=== PATIENT | male | born 1980 | race Caucasian/White ===

== ENCOUNTER 2017-12-23 23:38 | Emergency (ER) | payer OTHER, BC ==
[2017-12-24] MEDS ORDERED: diazePAM 5 MG TABLET PO STA (01:06)
[2017-12-24] MEDS ORDERED: HYDROcod/ACETAM 5/325 MG TABLET PO STA (01:06)
--- NOTE | 2017-12-24 01:26 | ED Physician Documentation ---
PD HPI BACK PAIN - Stated complaint Stated Complaint: BACK INJURY - Chief complaint Chief Complaint: Trauma Ch/Bk - History obtained from History obtained from: Patient - History of Present Illness Timing - onset: How many days ago (3) Timing - duration: Days (3) Timing - details: Abrupt onset Pain level now: 8 Location: Lower, Right Quality: Pain, Spasm Associated symptoms: No: Fever, Weakness, Numbness, Incontinent of urine, Unable to urinate, Incontinent of stool Improves with: Rest Worsened by: Movement Similar symptoms before: Has not had sx before Recently seen: Not recently seen - Additional information Additional information: sudden onset lower back pain, midline and right paralumbar. onset 12/20 when he was lifting a heavy load (approximately 75 pounds aluminum). Has not had this before. He had tolerable symptoms with rest, but increasingly severe symptoms that are triggered with movement. No relief with ibuprofen, acetaminophen Review of Systems : denies: Unable to Void, Incontinent Musculoskeletal: reports: Back pain. denies: Neck pain Neurologic: denies: Focal weakness, Numbness PD PAST MEDICAL HISTORY - Past Medical History Past Medical History: No Cardiovascular: None Respiratory: None Neuro: None Endocrine/Autoimmune: None GI: None : None HEENT: None Psych: None Musculoskeletal: None Derm: None - Past Surgical History Past Surgical History: Yes - Present Medications Home Medications: Ambulatory Orders Medication Instructions Recorded Confirmed Hydrocodone/Acetaminophen 1 - 2 each PO Q6HR PRN #20 tablet 12/24/17 [Hydrocodone-Acetamin 5-325 mg] diazePAM [Valium] 5 - 10 mg PO TID PRN #15 tablet 12/24/17 - Allergies Allergies/Adverse Reactions: Allergies Allergy/AdvReac Type Severity Reaction Status Date / Time No Known Drug Allergies Allergy Verified 04/19/13 19:02 - Social History Does the pt smoke?: No Smoking Status: Never smoker Does the pt drink ETOH?: Yes Does the pt have substance abuse?: No - Immunizations Immunizations are current?: Yes - POLST Patient has POLST: No PD ED PE NORMAL - Vitals Vital signs reviewed: Yes - General General: Alert and oriented X 3, No acute distress (NAD at rest, apparent painful distress with movement of lower back), Well developed/nourished - Back Back: No CVA TTP, No spinal TTP - Derm Derm: Normal color, Warm and dry, No rash - Extremities Extremities: Normal ROM s pain - Neuro Neuro: No motor deficit, No sensory deficit, Other (2+/4 bilateral patellar DTR) Results - Vitals Vitals: Vital Signs - 24 hr 12/23/17 12/24/17 23:47 01:35 Temperature 36.2 C L Heart Rate 87 78 Respiratory 16 14 Rate Blood Pressure 143/87 H 131/96 H O2 Saturation 98 96 Oxygen O2 Source Room air PD MEDICAL DECISION MAKING - ED course Complexity details: re-evaluated patient (patient reported significant pain relief after PO valium and vicodin), considered differential, d/w patient Departure - Departure Disposition: Home, Self Care Clinical Impression: Low back pain Condition: Good Instructions: ED Sprain Strain Lumbar Follow-Up: [facility] [Provider Group] [facility] [Provider Group] Prescriptions: Hydrocodone/Acetaminophen [Hydrocodone-Acetamin 5-325 mg] 1 - 2 each PO Q6HR PRN #20 tablet PRN Reason: Pain diazePAM [Valium] 5 - 10 mg PO TID PRN #15 tablet PRN Reason: Spasms Forms: Activity restrictions Discharge Date/Time: 12/24/17 02:11
[2017-12-24 01:36] VITALS: BP 131/96
== END 2017-12-24 02:11 | disposition home or self-care (01) ==
LOC: ED 23:38
DX: M54.5 Low back pain (principal); X50.0XXA Overexertion from strenuous movement or load, initial encounter
CPT/HCPCS: 99283; A9270

== ENCOUNTER 2018-10-30 17:24 | Emergency (ER) | payer OTHER ==
--- NOTE | 2018-10-30 17:53 | ED Physician Documentation ---
History of Present Illness - Stated complaint Stated Complaint: MALE - Chief complaint Chief Complaint: General - History obtained from History obtained from: Patient - History of Present Illness Timing: Today (This is a 38-year-old gentleman who had a vasectomy about 7 years ago. Since then he has had episodic right testicular pain that bothers him until he ejaculates and take some Motrin and then it goes away. He does notice that when that happens the ejaculate is more granular but he denies any blood in the ejaculate. Been more frequent this year and has had a particularly severe episode of this since 3:00 this morning and he feels like the testicle is riding high. He is relatively comfortable if he is not moving but walking and sitting in certain positions really hurt. He declines pain medication here.) Review of Systems Constitutional: denies: Fever, Chills Respiratory: denies: Dyspnea, Cough GI: denies: Abdominal Pain, Nausea, Vomiting PD PAST MEDICAL HISTORY - Past Medical History Past Medical History: No Cardiovascular: None Respiratory: None Endocrine/Autoimmune: None GI: None : None HEENT: None Psych: None Musculoskeletal: None Derm: None - Past Surgical History Past Surgical History: Yes - Present Medications Home Medications: Ambulatory Orders Medication Instructions Recorded Confirmed Ciprofloxacin HCl [Cipro] 500 mg PO BID #20 tablet 10/30/18 - Allergies Allergies/Adverse Reactions: Allergies Allergy/AdvReac Type Severity Reaction Status Date / Time No Known Drug Allergies Allergy Verified 10/30/18 17:29 - Social History Does the pt smoke?: No Smoking Status: Never smoker Does the pt drink ETOH?: Yes Does the pt have substance abuse?: No - Immunizations Immunizations are current?: Yes - POLST Patient has POLST: No PD ED PE NORMAL - Vitals Vital signs reviewed: Yes - General General: Alert and oriented X 3, No acute distress - Abdomen Abdomen: Normal bowel sounds, Soft, Non tender - Male Male : Other (No hernia, the right testicle is tender especially superiorly with normal lie, symmetric cremaster reflexes.) - Neuro Neuro: Alert and oriented X 3, Normal speech Results - Vitals Vitals: Vital Signs - 24 hr 10/30/18 10/30/18 17:27 19:32 Temperature 36.8 C 36.5 C Heart Rate 95 74 Respiratory 20 14 Rate Blood Pressure 145/103 H 132/102 H O2 Saturation 100 100 Oxygen O2 Source Room air - Rads (name of study) testicular sono Radiology: Prelim report reviewed (neg) Departure - Departure Disposition: Home, Self Care Clinical Impression: Acute epididymitis Condition: Good Record reviewed to determine appropriate education?: Yes Instructions: Epididymitis Dc Prescriptions: Ciprofloxacin HCl [Cipro] 500 mg PO BID #20 tablet Comments: Call your doctor to arrange a follow-up appointment, make the next available appointment. In the interim, return anytime if worse or if new symptoms develop. Your blood pressure was elevated today on check into the emergency department. This does not mean that you have hypertension, it is a common phenomenon to come to the emergency department and have elevated blood pressure. I recommend that you see your primary care physician within the week to have it rechecked when you are feeling better.
--- NOTE | 2018-10-30 19:28 | Ultrasound Report ---
Reason: R testicular pain Procedure Date: 10/30/2018 Accession Number: [id number] / [id number] Procedure: US - Testicle w/Doppler CPT Code: FULL RESULT: EXAM: SCROTAL ULTRASOUND EXAM DATE: 10/30/2018 07:14 PM. CLINICAL HISTORY: R testicular pain. COMPARISON: None available. TECHNIQUE: Real-time scanning was performed with static images obtained. Color-flow images were utilized. FINDINGS: Right: Testis: 4.0 x 2.5 x 3.3 cm. Normal size and echotexture. No mass, calcification, or abnormal blood flow. Epididymis: 0.9 x 0.8 x 1.2 cm. Normal size and echotexture. No mass or abnormal blood flow. Hydrocele: None. Varicocele: None. Left: Testis: 4.6 x 2.2 x 3.2 cm. Normal size and echotexture. No mass, calcification, or abnormal blood flow. Epididymis: 1.5 x 0.9 x 1.6 cm. Normal size and echotexture. No mass or abnormal blood flow. Hydrocele: None. Varicocele: None. IMPRESSION: No evidence of testicular torsion. Normal exam. [facility]IA
[2018-10-30 19:33] VITALS: BP 132/102
[2018-10-30] MEDS ORDERED: CIPROFLOXACIN 250 MG TABLET PO STA (19:37)
== END 2018-10-30 19:50 | disposition home or self-care (01) ==
LOC: ED 17:24
DX: N45.1 Epididymitis (principal); Z98.52 Vasectomy status
CPT/HCPCS: 76870; 93975; 99283; A9270

== ENCOUNTER 2020-04-22 13:29 | Outpatient (CLI) | payer OTHER | END 2020-04-22 13:30 | disposition home or self-care (01) | LOC: COV 13:29 → MERGE 13:29 → COV 13:30 | PROVIDERS: ATTEND Family Medicine | DX: R05 Cough (principal); M79.10 Myalgia, unspecified site; R09.81 Nasal congestion; Z20.828 Contact with and (suspected) exposure to other viral communicable diseases ==

== ENCOUNTER 2022-09-16 16:47 | Outpatient (CLI) | payer OTHER ==
--- NOTE | 2022-09-16 18:10 | XRAY Report ---
PROCEDURE: Thoracic Spine 3 View INDICATIONS: CERVICALGIA TECHNIQUE: 4 views of the thoracic spine were acquired. COMPARISON: None. FINDINGS: Bones: No fractures or dislocations. Very mild rightward curvature of thoracic spine with apex at T 7-8 level. No suspicious bony lesions. 12 pairs of ribs are noted, and appear intact where visualize d. Soft tissues: No paravertebral stripe thickening. IMPRESSION: Very mild scoliosis as above. No compression fracture or spondylolisthesis in thoracic spine. Reviewed by: Matthew Benitez MD on 09/16/2022 6:09 PM PST Approved by: Matthew Benitez MD on 09/16/2022 6:09 PM PST Station ID: [id number]
--- NOTE | 2022-09-16 18:11 | XRAY Report ---
PROCEDURE: Cervical Spine Complete INDICATIONS: CERVICALGIA TECHNIQUE: 4 views of the cervical spine acquired. COMPARISON: None. FINDINGS: Bones: No fractures or dislocations to the vertebra level. Oblique images demonstrate no bony fora ayesha stenoses. Soft tissues: No prevertebral soft tissue swelling. IMPRESSION: Unremarkable radiographic examination of cervical spine. Reviewed by: Matthew Benitez MD on 09/16/2022 6:09 PM [facility] Approved by: Matthew Benitez MD on 09/16/2022 6:09 PM [facility] Station ID: [id number]
== END 2022-09-16 16:48 | disposition home or self-care (01) ==
LOC: DI 16:47
PROVIDERS: ATTEND Physician Assistant Medical
DX: M54.2 Cervicalgia (principal); M41.9 Scoliosis, unspecified

== ENCOUNTER 2023-07-16 09:46 | Outpatient (CLI) | payer BC ==
[2023-07-16 12:38] LABS: BASOPHILS # (AUTO) 0.1 10^3/uL (0.0-0.1); BASOPHILS % (AUTO) 0.9 %; EOSINOPHILS # (AUTO) 0.3 10^3/uL (0.0-0.7); EOSINOPHILS % (AUTO) 4.5 %; HCT - HEMATOCRIT 45.5 % (42.0-52.0); HGB - HEMOGLOBIN 15.3 g/dL (14.0-18.0); LYMPHOCYTES # (AUTO) 1.5 10^3/uL (1.5-3.5); LYMPHOCYTES % (AUTO) 22.4 %; MEAN CORPUSCULAR HEMOGLOBIN 30.3 pg (27.0-31.0); MEAN CORPUSCULAR HGB CONC 33.6 g/dL (32.0-36.0); MEAN CORPUSCULAR VOLUME 90.1 fL (80.0-94.0); MEAN PLATELET VOLUME 9.7 fL (7.4-11.4); MONOCYTES # (AUTO) 0.6 10^3/uL (0.0-1.0); MONOCYTES % (AUTO) 8.6 %; NEUTROPHILS # (AUTO) 4.1 10^3/uL (1.5-6.6); NEUTROPHILS % (AUTO) 63.3 %; PLT - PLATELET COUNT 261 10^3/uL (130-450); RED BLOOD COUNT 5.05 10^6/uL (4.70-6.10); RED CELL DISTRIBUTION WIDTH 12.9 % (12.0-15.0); WHITE BLOOD COUNT 6.5 x10^3/uL (4.8-10.8)
[2023-07-16 13:12] LABS: ALBUMIN 4.7 g/dL (3.2-5.5); ALBUMIN/GLOBULIN RATIO 2.5 (1.0-2.2); ALKALINE PHOSPHATASE 51 IU/L (42-121); ALT ALANINE AMINOTRANSFERASE 18 IU/L (10-60); AST ASPARTATE AMINOTRANSFERASE 14 IU/L (10-42); BILIRUBIN,TOTAL 0.5 mg/dL (0.2-1.0); BUN - BLOOD UREA NITROGEN 13 mg/dL (6-20); CALCIUM 9.6 mg/dL (8.5-10.3); CARBON DIOXIDE - CO2 29 mmol/L (21-32); CHLORIDE 107 mmol/L (101-111); CHOL/HDL RATIO 4.9 (<5.0); CHOLESTEROL 153 mg/dL; GFR - MDRD 82 (>89); GLUCOSE 107 mg/dL (74-104); HDL CHOLESTEROL 31 mg/dL; LDL CHOLESTEROL,CALCULATED 107 mg/dL; LDL/HDL RATIO 3.5 (<3.6); POTASSIUM 4.8 mmol/L (3.5-4.5); SODIUM 139 mmol/L (135-145); THYROID STIMULATING HORMONE 0.41 uIU/mL (0.34-5.60); TOTAL PROTEIN 6.6 g/dL (6.4-8.9); TRIGLYCERIDES 76 mg/dL (48-352); VLDL CHOLESTEROL 15 mg/dL
[2023-07-16 13:19] LABS: ESTIMATED AVERAGE GLUCOSE 100 mg/dL (70-100); HEMOGLOBIN A1c% 5.1 % (4.27-6.07)
== END 2023-07-16 09:47 | disposition home or self-care (01) ==
LOC: LAB.N 09:46
PROVIDERS: ATTEND Family Medicine
DX: R03.0 Elevated blood-pressure reading, without diagnosis of hypertension (principal); Z13.6 Encounter for screening for cardiovascular disorders
CPT/HCPCS: 36415; 80053; 80061; 83036; 83721; 84443; 85025